=== PATIENT | female | born 1975 | race Two or more races ===

== ENCOUNTER 2017-11-28 22:38 | Emergency (ER) | payer MEDICAID, OTHER ==
[~2017-11-28] VITALS: Ht 162.6 cm; Wt 61.2 kg
[2017-11-28] MEDS ORDERED: NORCO 10-325 T1 EACH ORAL (22:46)
[2017-11-28 22:48] VITALS: BP 132/95
[2017-11-28] MEDS ORDERED: NEURONTIN100 MG ORAL (23:09)
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
[2017-11-28 23:12] VITALS: BP 0/0
== END 2017-11-28 23:55 | disposition home or self-care (01) ==
LOC: EMR 23:15
DX: G62.9 Polyneuropathy, unspecified (principal); F31.9 Bipolar disorder, unspecified
CPT/HCPCS: 99283

== ENCOUNTER 2018-01-30 22:31 | Emergency (ER) | payer OTHER ==
[~2018-01-30] VITALS: Ht 157.5 cm; Wt 54.4 kg
[~2018-01-30 22:31] MED LIST: NEURONTIN100 MG ORAL; NORCO 10-325 T1 EACH ORAL
[2018-01-30 22:56] VITALS: BP 124/93
--- NOTE | 2018-01-30 23:53 | Emergency Room Report ---
History of Present Illness General Chief Complaint: Headache Source: Patient Present Illness HPI This patient c/o sharp intermittent headache sometimes right temporal area sometimes left and sometimes posterior. Not severe. Improves with Tylenol then recurs. There is no precipitant/pattern. No vomiting, no dizziness, off balance. She also c/o intermittent burning sensation left arm, lateral aspect shoulder/upper arm. No trauma, no fever. No trauma. No vomiting. No fever. She takes care of her two kids without assistance. No meds. Allergies: Coded Allergies: No Known Allergies (Verified Allergy, Unknown, 03/16/07) Patient History Now: No - 01/27/18 Review of Systems Constitutional: Denies: fever Eye: Denies: acuity changes Respiratory: Denies: cough, shortness of breath Cardiovascular: Denies: chest pain Gastrointestinal: Denies: nausea, vomiting Skin: Denies: rash Neurological: Denies: headache Physical Exam Vital Signs Date Time Temp Pulse Resp B/P (MAP) Pulse Ox O2 Delivery O2 Flow Rate FiO2 01/30/18 22:47 97.2 70 16 144/98 99 Room Air 97.2 General Appearance: well appearing, no apparent distress Head: normocephalic, atraumatic Eyes: bilateral eye normal inspection, bilateral eye PERRL ENT: hearing grossly normal, normal voice Neck: full range of motion, supple Respiratory: no respiratory distress, speaking full sentences Musculoskeletal: normal inspection Neurologic: alert, oriented x3, motor strength/tone normal, cerebellar normal, normal gait, speech normal Skin: no rash Medical Decision Making Diagnostic Impression: Primary Impression: Headache ER Course this patient has nonspecific headache, diffuse bitemporal resolves at home with tylenol but then recurs. she says she is worried bc she has kids at home. she also complained of intermittent pain down her left arm, tingling/numb feeling. i advised to take tylenol or motrin for headache and motrin if her arm bothers her. i told her it is possible her left arm could be "a pinched nerve" and patient wanted to know why it isn't a stroke. i told patient there are many reasons why this is not a stroke but primarily it is important that she doesn't smoke (she doesn't) and doesn't have high bp (she doesn't). pt. wanted more intervention/treatment and was dissatisfied with not doing more "you don't know it's not a stroke" and then asked me if i wasn't doing more b/c i was racist at which point i said to her "if you don't have any more questions i am leaving" and she said she wanted to leave and told the nurse she wanted to go. later she apologized to nurse. Last Vital Signs Date Time Temp Pulse Resp B/P (MAP) Pulse Ox O2 Delivery O2 Flow Rate FiO2 01/30/18 22:56 98.6 68 23 124/93 100 Room Air 98.6 Status: unchanged Disposition: HOME, SELF-CARE Condition: Stable Patient Instructions: General Headache Without Cause Valdez Godoy M.D. Jan 30, 2018 23:53
[2018-01-31 00:15] VITALS: BP 124/93
== END 2018-01-31 00:15 | disposition left against medical advice (07) ==
LOC: EMR 23:05
DX: R51 Headache (principal)
CPT/HCPCS: 99283

== ENCOUNTER 2018-08-14 17:58 | Emergency (ER) | payer OTHER ==
[~2018-08-14] VITALS: Ht 162.6 cm; Wt 63.5 kg
--- NOTE | 2018-08-14 18:07 | NUR ---
ED Nurse Note: Patient walked into ED from home c/o rectal bleeding that started 08/11/18Thursday, patient reports spotting of bright red blood on the underwear since then. patient also reports stomache pain since 08/11/18.
[2018-08-14 18:13] VITALS: BP 136/94
--- NOTE | 2018-08-14 18:26 | NUR ---
ED Nurse Note: blood and urine sent down to lab
[2018-08-14 18:38] LABS: APPEARANCE,URINE CLEAR; BILIRUBIN, URINE NEGATIVE (NEGATIVE); COLOR,URINE PALE YELLOW; GLUCOSE, URINE (UA) NEGATIVE (NEGATIVE); KETONES,URINE NEGATIVE (NEGATIVE); LEUKOCYTE ESTERASE ,URINE 2+ (NEGATIVE); NITRITE,URINE NEGATIVE (NEGATIVE); PH,URINE 8 (4.5-8.0); PROTEIN,URINE NEGATIVE (NEGATIVE); UROBILINOGEN,URINE NORMAL MG/DL (0.0-1.0)
[2018-08-14 18:43] LABS: ANION GAP 6 mmol/L (5-15); BLOOD UREA NITROGEN 6 mg/dL (7-18); CALCIUM 9.2 MG/DL (8.5-10.1); CARBON DIOXIDE 29 MMOL/L (21-32); CHLORIDE 103 MMOL/L (98-107); CREATININE 0.5 MG/DL (0.55-1.30); POTASSIUM 3.5 MMOL/L (3.5-5.1); SODIUM 138 MMOL/L (136-145)
[2018-08-14 18:46] LABS: BASOPHILS % (AUTO) 1.5 % (0.0-2.0); EOSINOPHILS % (AUTO) 2.3 % (0.0-3.0); HEMATOCRIT 41.7 % (37.0-47.0); HEMOGLOBIN 14.1 G/DL (12.0-16.0); LYMPHOCYTES % (AUTO) 36.2 % (20.0-45.0); MEAN CORPUSCULAR VOLUME 91 FL (80-99); MONOCYTES % (AUTO) 8.1 % (1.0-10.0); NEUTROPHILS % (AUTO) 51.9 % (45.0-75.0); PLATELET COUNT 262 K/UL (150-450); WHITE BLOOD COUNT 5.8 K/UL (4.8-10.8)
[2018-08-14 18:48] LABS: ALANINE AMINOTRANSFERASE 29 U/L (12-78); ALBUMIN 4.1 G/DL (3.4-5.0); ALBUMIN/GLOBULIN RATIO 1.1 (1.0-2.7); ALKALINE PHOSPHATASE 64 U/L (46-116); ASPARTATE AMINO TRANSFERASE 20 U/L (15-37); BILIRUBIN,TOTAL 0.3 MG/DL (0.2-1.0)
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
--- NOTE | 2018-08-14 19:18 | NUR ---
HAND-OFF: Report given to Delmi Mason RN.
[2018-08-14] MEDS ORDERED: COLACE100 MG ORAL (19:49)
[2018-08-14] MEDS ORDERED: ANUSOL-HC30 GM RC (19:49)
[2018-08-14 20:37] VITALS: BP 129/84
== END 2018-08-14 20:30 | disposition home or self-care (01) ==
LOC: EMR 18:38
DX: K64.8 Other hemorrhoids (principal); R10.30 Lower abdominal pain, unspecified
CPT/HCPCS: 36415; 80053; 81003; 81025; 83690; 85025; 99284